=== PATIENT | female | born 1995 | race Two or more races ===

== ENCOUNTER 2020-07-22 08:16 | Emergency (ER) | payer SELFPAY ==
[~2020-07-22] VITALS: Ht 175.3 cm; Wt 75.0 kg
[2020-07-22 08:19] VITALS: BP 122/76
[2020-07-22] MEDS ORDERED: IBUPROFEN 600MG TABLET PO ONE (08:45)
== END 2020-07-22 08:50 | disposition left against medical advice (07) ==
LOC: ER 08:16
DX: J06.9 Acute upper respiratory infection, unspecified (principal); B34.9 Viral infection, unspecified; S99.922A Unspecified injury of left foot, initial encounter; F12.10 Cannabis abuse, uncomplicated; F17.200 Nicotine dependence, unspecified, uncomplicated; W13.9XXA Fall from, out of or through building, not otherwise specified, initial encounter; Y93.89 Activity, other specified; Y92.89 Other specified places as the place of occurrence of the external cause; Y99.8 Other external cause status
CPT/HCPCS: 99283